=== PATIENT | female | born 1940 | race Hispanic/Latino ===

== ENCOUNTER 2020-05-31 15:53 | Inpatient (IN) | payer MEDICARE ==
[2020-05-31] MEDS ORDERED: traZODone 50 MG TAB PO PRN (16:47)
[2020-05-31] MEDS ORDERED: ACETAMINOPHEN 325 MG TAB PO PRN (16:47)
[2020-05-31] MEDS ORDERED: CARBIDOPA PO SCH (20:00)
[2020-05-31] MEDS ORDERED: LEVODOPA PO SCH (20:00)
[2020-05-31] MEDS: carBAMazepine 200 MG TAB PO SCH (21:24)
[2020-05-31] MEDS: CARBIDOPA/LEVODOPA 25-250 TAB PO SCH (21:24)
[2020-05-31] MEDS: BENZTROPINE 1 MG TAB PO SCH (21:25)
[2020-05-31] MEDS: PRAVASTATIN 40 MG TAB PO SCH (21:26)
[2020-05-31] MEDS: DONEPEZIL 10 MG TAB PO SCH (21:28)
[2020-05-31 21:56] LABS: Basophils # (Auto) 0.1 K/mm3 (0.0-0.1); Basophils % (Auto) 0.9 % (0.0-1.8); Eosinophils # (Auto) 0.2 K/mm3 (0.0-0.4); Eosinophils % (Auto) 2.3 % (0.0-4.3); Hematocrit 37.2 % (30.3-42.9); Hemoglobin 12.4 gm/dl (10.1-14.3); Lymphocytes # (Auto) 1.3 K/mm3 (1.2-5.4); Mean Corpuscular HGB Conc 33 % (30-34); Mean Corpuscular Volume 90 fl (79-97); Monocytes # (Auto) 0.7 K/mm3 (0.0-0.8); Monocytes % (Auto) 8.2 % (0.0-7.3); Platelet Count 381 K/mm3 (140-440); Red Blood Count 4.16 M/mm3 (3.65-5.03)
[2020-05-31 22:23] LABS: Alanine Aminotransferase 22 units/L (7-56); Albumin 4.3 g/dL (3.9-5); BUN/Creatinine Ratio 9; Blood Urea Nitrogen 10 mg/dL (7-17); Calcium 10.2 mg/dL (8.4-10.2); Chol/HDL Ratio 6.12 %; HDL Cholesterol 33 mg/dL (40-59); Hemolysis Index 4; LDL Cholesterol,Direct TNR mg/dL (50-130)
[2020-06-01] MEDS: LEVOTHYROXINE 25 MCG TAB PO SCH (06:08)
--- NOTE | 2020-06-01 07:28 | History and Physical Report ---
GP History & Physical - History of Present Illness Date of admission: 05/31/20 Date of Examination: 06/01/20 Reason for Admission: Other ([facility] behavior) Chief Complaint: manic behavior History of Present Illness: Per Psych Nurse: Pt admitted from ED presents with Bipolar with severe mac episode. A&OX4 with insight into situation. "I've been Bipolar for a long time," pt stated. Calm and cooperative during interview. Denies SI or HI. No AV/H observed or reported. Pt met on the w/c, but said she used to walk until one day she "decided" not to be getting up again. Denies ever had accident or injury to her legs. Reports she can still walk if someone hold her.Pt complies with medication. VS stable. BG 125 mg/dL. Her skin assessed to be intact and clean. No acute distress observed and none reported. Will continue to monitor for safety. PSYCH HPI Patient is a , retired female with past Psychiatric history of bipolar and anxiety currently admitted to [facility] on a 1014 admitted to our facility due to persistent hypoglycemic episode. Patient is alert and oriented x3, says she has been thinking about getting better so she can be able to function like a regular person. Reports she is and lives with and has had 2 children, one whom had at age 21. Today she says her mood is even, not down hill and not uphill, reports good sleep hygiene with an okay appetite. Patient had to be redirected multiple times to line of questioning during intake. Mood is unstable, talkative and admits that mentally she doesnt feel good. PAST PSYCHIATRIC HISTORY Diagnoses: Bipolar and Anxiety Suicide attempts or Self-harm behavior: none Prior psychiatric hospitalizations: Yes Substance Abuse history: none reported Previous psychiatric medications tried: Yes Outpatient treatment: yes PAST MEDICAL HISTORY: Family Psychiatric History: None reported or documented SOCIAL HISTORY Marital Status: Living Arrangements: with Employment Status: retired Access to guns/weapons: none reported Education: n/a History of Abuse: none reported Legal History: none reported REVIEW OF SYSTEMS Constitutional: Negative for weight loss ENT: Negative for stridor Respiratory: Negative for cough or hemoptysis All other systems reviewed and are negative MENTAL STATUS EXAMINATION General Appearance and Behavior: Age appropriate, good hygiene, wearing appropriate clothes, lying in bed, good eye contact, cooperative polite with questioning. Cooperation: Participating/engaged Psychomotor Behavior: unremarkable and within normal limits Mood: even Affect and affective range: euthymic Thought Process: illogical Thought Content: Loose associations Speech: Normal volume, Regular rate and rhythm Intellectual Functioning: Average Suicidal Ideation: Denies SI Homicidal Ideation: Denies HI Impulse Control: Impaired Insight and Judgment: Normal insight and judgment Memory: Impaired Attention: normal Orientation: Alert Assessment and Plan - Psychiatric problem (1) Bipolar 2 disorder Current Visit: Yes Status: Acute Treatment Plan Patient will be admitted for inpatient psychiatric evaluation, medication adjustment and close monitoring The patient's behavior, mood, sleep and appetite will be closely monitored. Patient will be enrolled in individual and group therapeutic sessions and encouraged to attend. Patient will be provided with a safe and structured environment. Patient's physical health needs will be addressed by the Hospitalist. Hospitalist Consulted Labs including CBC, CMP, Lipid profile and Hemoglobin A1C ordered Social Assessment will be completed and the [facility] [employer] Inspector will work with patient and family to ensure a suitable and safe disposition Medication adjustment will be made as clinically indicated Usual Wellness Faith/Preservation: - Start Trazodone 50 mg po QHS & 50 mg po QHS PRN between 10 PM & 2 AM for insomnia - Start Melatonin 5 mg po QHS to promote circadian rhythm - Start Valmora-3 for brain health, reduce impulsivity, and as adjunctive treatment for mood disorder, continue upon discharge given overall benefits. - Start B1 prophylaxis with 200 mg po for 5 days The patient agreed on the treatment plan, understood the risk, benefit, alternative treatment, potential consequence of no treatment, and gave informed consent. Initial Certification This is an acknowledgement statement that MARCUS ALEXANDER is a 80 year old F who requires inpatient psychiatric admission for treatment which could reasonably be expected to improve the patient's condition for mental health Estimated period of time patient will need to remain in the hospital: [4] Plan for post-hospital care: [outpt ] Legal Status: Voluntary Patient Problems: Current Active Problems Bipolar 2 disorder (Acute) Reaction to Hospitalization: Accepting Medications and Allergies Allergies Allergy/AdvReac Type Severity Reaction Status Date / Time ceftriaxone [From Rocephin] Allergy Unknown Verified 05/29/20 05:06 codeine Allergy Unknown Verified 05/29/20 05:06 morphine Allergy Unknown Verified 05/29/20 05:07 niacin Allergy Unknown Verified 05/29/20 05:06 Sulfa (Sulfonamide Allergy Unknown Verified 05/29/20 05:06 Antibiotics) Home Medications Medication Instructions Recorded Confirmed Last Taken Type Benztropine [Cogentin] 1 mg PO BID 05/29/20 05/31/20 05/28/20 History Carbidopa/Levodopa [Carbidopa-Levo 1 each PO TID 05/29/20 05/31/20 05/28/20 History 25-250 mg Odt] Citalopram [celeXA] 10 mg PO QDAY 05/29/20 05/31/20 05/28/20 History Ferrous Sulfate [Ferrous Sulfate 325 mg PO QDAY 05/29/20 05/31/20 05/28/20 History 324 MG] Levothyroxine [Synthroid] 25 mcg PO QAM 05/29/20 05/31/20 05/28/20 History Metoprolol [Lopressor TAB] 25 mg PO QDAY 05/29/20 05/31/20 05/28/20 History OLANzapine [ZyPREXA] 2.5 mg PO QDAY 05/29/20 05/31/20 05/28/20 History Pravastatin [Pravachol] 40 mg PO QHS 05/29/20 05/31/20 05/28/20 History Primidone [Mysoline] 50 mg PO QDAY 05/29/20 05/31/20 05/28/20 History carBAMazepine [TEGretol] 200 mg PO Q12HR 05/29/20 05/31/20 05/28/20 History donepeziL [Aricept] 10 mg PO QHS 05/29/20 05/31/20 05/28/20 History traZODone [Desyrel] 25 mg PO QHS PRN 05/29/20 05/31/20 05/28/20 History Acetaminophen [Acetaminophen TAB] 650 mg PO Q4H PRN tablet 05/30/20 05/31/20 Unknown Rx amLODIPine 10 mg PO DAILY 15 Days #15 tab 05/30/20 05/31/20 Unknown Rx amLODIPine 10 mg PO QDAY tablet 05/30/20 05/31/20 Unknown Rx cloNIDine [Catapres] 0.1 mg PO Q8HR PRN 05/30/20 05/31/20 Unknown History haloperidoL [Haldol] 2 mg IM Q8HR PRN 05/30/20 05/31/20 Unknown History Active Meds: Active Medications Acetaminophen (Tylenol) 650 mg PO Q4H PRN PRN Reason: Pain MILD(1-3)/Fever >100.5/REDDY Amlodipine Besylate (Amlodipine) 10 mg PO DAILY [facility] Benztropine Mesylate (Cogentin) 1 mg PO BID [facility] Last Admin: 05/31/20 21:25 Dose: 1 mg Documented by: Carbamazepine (Tegretol) 200 mg PO Q12HR [facility] Last Admin: 05/31/20 21:24 Dose: 200 mg Documented by: Carbidopa/Levodopa (Sinemet) 1 each PO TID [facility] Last Admin: 05/31/20 21:24 Dose: 1 each Documented by: Citalopram Hydrobromide (Celexa) 10 mg PO QDAY [facility] Donepezil HCl (Aricept) 10 mg PO QHS [facility] Last Admin: 05/31/20 21:28 Dose: 10 mg Documented by: Ferrous Sulfate (Feosol) 325 mg PO DAILY [facility] Levothyroxine Sodium (Synthroid) 25 mcg PO DAILY@0600 [facility] Last Admin: 06/01/20 06:08 Dose: 25 mcg Documented by: Metoprolol Tartrate (Metoprolol) 25 mg PO QDAY [facility] Olanzapine (Zyprexa) 10 mg PO QHS [facility] Last Admin: 05/31/20 21:26 Dose: 10 mg Documented by: Pravastatin Sodium (Pravachol) 40 mg PO QHS [facility] Last Admin: 05/31/20 21:26 Dose: 40 mg Documented by: Trazodone HCl (Desyrel) 25 mg PO QHS PRN PRN Reason: Sleep Results - Results Labs/Vitals: Laboratory Last Values WBC 8.1 K/mm3 (4.5-11.0) 05/31/20 21:28 RBC 4.16 M/mm3 (3.65-5.03) 05/31/20 21:28 Hgb 12.4 gm/dl (10.1-14.3) 05/31/20 21:28 Hct 37.2 % (30.3-42.9) 05/31/20 21:28 MCV 90 fl (79-97) 05/31/20 21:28 MCH 30 pg (28-32) 05/31/20 21:28 MCHC 33 % (30-34) 05/31/20 21:28 RDW 17.0 % (13.2-15.2) H 05/31/20 21:28 Plt Count 381 K/mm3 (140-440) 05/31/20 21:28 Lymph % (Auto) 16.0 % (13.4-35.0) 05/31/20 21:28 Stone % (Auto) 8.2 % (0.0-7.3) H 05/31/20 21:28 Eos % (Auto) 2.3 % (0.0-4.3) 05/31/20 21:28 Baso % (Auto) 0.9 % (0.0-1.8) 05/31/20 21:28 Lymph # 1.3 K/mm3 (1.2-5.4) 05/31/20 21:28 Stone # 0.7 K/mm3 (0.0-0.8) 05/31/20 21:28 Eos # 0.2 K/mm3 (0.0-0.4) 05/31/20 21:28 Baso # 0.1 K/mm3 (0.0-0.1) 05/31/20 21:28 Seg Neutrophils % 72.6 % (40.0-70.0) H 05/31/20 21:28 Seg Neutrophils # 5.9 K/mm3 (1.8-7.7) 05/31/20 21:28 Sodium 137 mmol/L (137-145) 05/31/20 21:28 Potassium 3.9 mmol/L (3.6-5.0) 05/31/20 21:28 Chloride 97.7 mmol/L (98-107) L 05/31/20 21:28 Carbon Dioxide 24 mmol/L (22-30) 05/31/20 21:28 Anion Gap 19 mmol/L 05/31/20 21:28 BUN 10 mg/dL (7-17) 05/31/20 21:28 Creatinine 1.1 mg/dL (0.6-1.2) 05/31/20 21:28 Estimated GFR 48 ml/min 05/31/20 21:28 BUN/Creatinine Ratio 9 % 05/31/20 21:28 Glucose 206 mg/dL (65-100) H 05/31/20 21:28 POC Glucose 125 (70-105) H 06/01/20 00:16 Calcium 10.2 mg/dL (8.4-10.2) 05/31/20 21:28 Total Bilirubin 0.20 mg/dL (0.1-1.2) 05/31/20 21:28 AST 19 units/L (5-40) 05/31/20 21:28 ALT 22 units/L (7-56) 05/31/20 21:28 Alkaline Phosphatase 122 units/L (35-129) 05/31/20 21:28 Total Protein 7.4 g/dL (6.3-8.2) 05/31/20 21:28 Albumin 4.3 g/dL (3.9-5) 05/31/20 21:28 Albumin/Globulin Ratio 1.4 % 05/31/20 21:28 Triglycerides 459 mg/dL (2-149) H 05/31/20 21:28 Cholesterol 202 mg/dL (50-199) H 05/31/20 21:28 LDL Cholesterol Direct TNR 05/31/20 21:28 HDL Cholesterol 33 mg/dL (40-59) L 05/31/20 21:28 Cholesterol/HDL Ratio 6.12 % 05/31/20 21:28 TSH 2.890 mlU/mL (0.270-4.200) 05/31/20 21:28 Last Vital Signs Temp 98.4 F 06/01/20 00:04 Pulse 81 06/01/20 00:05 Resp 18 06/01/20 00:04 BP 145/69 06/01/20 00:04 Pulse Ox 96 06/01/20 00:05 Physical Examination - Constitutional Vitals: Vital Signs Temp Pulse Resp BP Pulse Ox 98.4 F 81 18 145/69 96 06/01/20 00:04 06/01/20 00:05 06/01/20 00:04 06/01/20 00:04 06/01/20 00:05 Temperature -Last 24 Hours Temperature 98.4 F Temperature 98.4 F Mental Status Exam - Vital signs Last Vital Signs Temp 98.4 F 06/01/20 00:04 Pulse 81 06/01/20 00:05 Resp 18 06/01/20 00:04 BP 145/69 06/01/20 00:04 Pulse Ox 96 06/01/20 00:05 Assessment and Plan - Psychiatric problem (1) Bipolar 2 disorder Current Visit: Yes Status: Acute Physician Certification - Certification Statement Physician Certification Statement: This is an acknowledgement statement that MARCUS ALEXANDER is a 80 year old F who requires inpatient psychiatric admission for treatment which could reasonably be expected to improve the patient's condition for Estimated period of time patient will need to remain in the hospital: [ ] Plan for post-hospital care: [ ]
[2020-06-01] MEDS: CARBIDOPA/LEVODOPA 25-250 TAB PO SCH ×3 (08:45→21:16)
[2020-06-01] MEDS: FERROUS SULFATE 325 MG TAB PO SCH (09:25)
[2020-06-01] MEDS: CITALOPRAM 10 MG TAB PO SCH (09:26)
[2020-06-01] MEDS: BENZTROPINE 1 MG TAB PO SCH ×2 (09:26→21:17)
[2020-06-01] MEDS: carBAMazepine 200 MG TAB PO SCH ×2 (09:26→21:17)
[2020-06-01] MEDS: METOPROLOL TARTRATE 25 MG TAB PO SCH (09:27)
[2020-06-01] MEDS: amLODIPine 10 MG TAB PO SCH (09:27)
[2020-06-01] MEDS ORDERED: FERROUS SULFATE 325 MG PO SCH (10:00)
[2020-06-01] MEDS ORDERED: cloNIDine 0.1 MG TAB PO PRN (12:03)
--- NOTE | 2020-06-01 12:03 | Consultation ---
History of Present Illness - Reason for Consult Consult date: 06/01/20 Medical management Requesting physician: MELANI DAS - History of Present Illness 80 YO Female with DM, CKD, HLD, Hypothyroidism admitted to [facility] for psychiatric stabilization. Consult placed by Dr. Das for medical management. This is a 80-year-old female with DM (on metformin and glipizide), renal insufficiency, high cholesterol, and hypothyroidism presents to [facility] from [facility] for recurrent hypoglycemia per the enclosed psychiatric hospital documentation from ED documentation. She states that she is at [facility] for severe depression. She also reports having green/black bowel movements for 3 days however denies abdominal pain, nausea or vomiting. Patient is a poor historian. She denies any chest pain, nausea vomiting, cough, shortness of breath, fatigue, recent weight loss, fevers or chills. She denies any recent travel or contact with sick persons. She denies any known recent COVID-19 exposure. A digital rectal exam conducted in the ED showed no blood and is guaiac negative. Workup in emergency department showed lactic acidosis of 2.8, renal insufficiency with a creatinine of 1 and a BUN of 14, and slight hypercalcemia at 10.8. Her CXR shows no acute process. A mental health evaluation was requested as she in under a 1013 order. She was started on an infusion of D5LR at 100ml/hour, placed on hypoglycemic protocol with already Accu-Cheks and will be admitted to the hospitalist service for reoccurant hypoglycemia episodes and supportive care. At the time of my exam she is arousable to verbal and physical stimuli however she quickly falls back asleep. RN brought to bedside to conduct an Accu-Chek which revealed a blood glucose of 70. Instructed RN to follow hypoglycemia protocol and administer D50 IV push and recheck blood sugar within 15 minutes. Past History Past Medical History: diabetes, hyperlipidemia, hypothyroidism. denies: seizures, stroke Past Surgical History: No surgical history Social history: full code. denies: smoking, alcohol abuse, prescription drug abuse, IV drug use Family history: no significant family history Medications and Allergies Allergies Allergy/AdvReac Type Severity Reaction Status Date / Time ceftriaxone [From Rocephin] Allergy Unknown Verified 05/29/20 05:06 codeine Allergy Unknown Verified 05/29/20 05:06 morphine Allergy Unknown Verified 05/29/20 05:07 niacin Allergy Unknown Verified 05/29/20 05:06 Sulfa (Sulfonamide Allergy Unknown Verified 05/29/20 05:06 Antibiotics) Home Medications Medication Instructions Recorded Confirmed Last Taken Type Benztropine [Cogentin] 1 mg PO BID 05/29/20 05/31/20 05/28/20 History Carbidopa/Levodopa [Carbidopa-Levo 1 each PO TID 05/29/20 05/31/20 05/28/20 History 25-250 mg Odt] Citalopram [celeXA] 10 mg PO QDAY 05/29/20 05/31/20 05/28/20 History Ferrous Sulfate [Ferrous Sulfate 325 mg PO QDAY 05/29/20 05/31/20 05/28/20 History 324 MG] Levothyroxine [Synthroid] 25 mcg PO QAM 05/29/20 05/31/20 05/28/20 History Metoprolol [Lopressor TAB] 25 mg PO QDAY 05/29/20 05/31/20 05/28/20 History OLANzapine [ZyPREXA] 2.5 mg PO QDAY 05/29/20 05/31/20 05/28/20 History Pravastatin [Pravachol] 40 mg PO QHS 05/29/20 05/31/20 05/28/20 History Primidone [Mysoline] 50 mg PO QDAY 05/29/20 05/31/20 05/28/20 History carBAMazepine [TEGretol] 200 mg PO Q12HR 05/29/20 05/31/20 05/28/20 History donepeziL [Aricept] 10 mg PO QHS 05/29/20 05/31/20 05/28/20 History traZODone [Desyrel] 25 mg PO QHS PRN 05/29/20 05/31/20 05/28/20 History Acetaminophen [Acetaminophen TAB] 650 mg PO Q4H PRN tablet 05/30/20 05/31/20 Unknown Rx amLODIPine 10 mg PO DAILY 15 Days #15 tab 05/30/20 05/31/20 Unknown Rx amLODIPine 10 mg PO QDAY tablet 05/30/20 05/31/20 Unknown Rx cloNIDine [Catapres] 0.1 mg PO Q8HR PRN 05/30/20 05/31/20 Unknown History haloperidoL [Haldol] 2 mg IM Q8HR PRN 05/30/20 05/31/20 Unknown History Active Meds: Active Medications Acetaminophen (Tylenol) 650 mg PO Q4H PRN PRN Reason: Pain MILD(1-3)/Fever >100.5/REDDY Amlodipine Besylate (Amlodipine) 10 mg PO DAILY [facility] Last Admin: 06/01/20 09:27 Dose: 10 mg Documented by: Benztropine Mesylate (Cogentin) 1 mg PO BID [facility] Last Admin: 06/01/20 09:26 Dose: 1 mg Documented by: Carbamazepine (Tegretol) 200 mg PO Q12HR [facility] Last Admin: 06/01/20 09:26 Dose: 200 mg Documented by: Carbidopa/Levodopa (Sinemet) 1 each PO TID [facility] Last Admin: 06/01/20 08:45 Dose: 1 each Documented by: Citalopram Hydrobromide (Celexa) 10 mg PO QDAY [facility] Last Admin: 06/01/20 09:26 Dose: 10 mg Documented by: Donepezil HCl (Aricept) 10 mg PO QHS [facility] Last Admin: 05/31/20 21:28 Dose: 10 mg Documented by: Ferrous Sulfate (Feosol) 325 mg PO DAILY [facility] Last Admin: 06/01/20 09:25 Dose: 325 mg Documented by: Levothyroxine Sodium (Synthroid) 25 mcg PO DAILY@0600 [facility] Last Admin: 06/01/20 06:08 Dose: 25 mcg Documented by: Metoprolol Tartrate (Metoprolol) 25 mg PO QDAY [facility] Last Admin: 06/01/20 09:27 Dose: 25 mg Documented by: Olanzapine (Zyprexa) 10 mg PO QHS [facility] Last Admin: 05/31/20 21:26 Dose: 10 mg Documented by: Pravastatin Sodium (Pravachol) 40 mg PO QHS [facility] Last Admin: 05/31/20 21:26 Dose: 40 mg Documented by: Trazodone HCl (Desyrel) 25 mg PO QHS PRN PRN Reason: Sleep Exam - Constitutional Vitals: Temp Pulse Resp BP Pulse Ox 98.4 F 98 H 18 123/63 99 06/01/20 07:38 06/01/20 07:38 06/01/20 07:38 06/01/20 07:38 06/01/20 07:38 Results - Labs CBC & Chem 7: 05/31/20 21:28 05/31/20 21:28 Labs: Abnormal lab results 05/31/20 05/31/20 06/01/20 Range/Units 21:28 21:28 00:16 RDW 17.0 H (13.2-15.2) % [place] % (Auto) 8.2 H (0.0-7.3) % Seg Neutrophils % 72.6 H (40.0-70.0) % Chloride 97.7 L (98-107) mmol/L Glucose 206 H (65-100) mg/dL POC Glucose 125 H (70-105) Triglycerides 459 H (2-149) mg/dL Cholesterol 202 H (50-199) mg/dL HDL Cholesterol 33 L (40-59) mg/dL 06/01/20 06/01/20 Range/Units 08:10 11:29 RDW (13.2-15.2) % [place] % (Auto) (0.0-7.3) % Seg Neutrophils % (40.0-70.0) % Chloride (98-107) mmol/L Glucose (65-100) mg/dL POC Glucose 127 H 146 H (70-105) Triglycerides (2-149) mg/dL Cholesterol (50-199) mg/dL HDL Cholesterol (40-59) mg/dL
[2020-06-01] MEDS: PRAVASTATIN 40 MG TAB PO SCH (21:16)
[2020-06-01] MEDS: DONEPEZIL 10 MG TAB PO SCH (21:17)
[2020-06-02] MEDS: LEVOTHYROXINE 25 MCG TAB PO SCH (05:48)
--- NOTE | 2020-06-02 07:28 | Progress Note ---
Subjective Date of service: 06/02/20 Principal diagnosis: Bipolar 2 disorder Subjective Comment: Per Floor Nurse: Patient is calm and cooperative, she is alert oriented X3, no behaviour issue noted, pt compliant with medications, denies si/hi and avh, eat 75% -100% meals, voiced no compliant, interact well with peer, will continue to monitor. Psych Progress Mrs Benson reports feeling great today, and very positive, says she feels she can now focus on her physcial health. 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 Reason to continue inpatient psychiatric hospitalization: Patient symptoms improving, still exhibits hypomanic symptoms, reports feeling great, wanting to hire someone and pay them very good salary and sudden feeling of energy. Will continue to monitor, meds were recently adjusted. MENTAL STATUS EXAMINATION General Appearance and Behavior: Age appropriate, good hygiene, wearing appropriate clothes, lying in bed, good eye contact, cooperative polite with questioning. Cooperation: Participating/engaged Psychomotor Behavior: unremarkable and within normal limits Mood: even Affect and affective range: euthymic Thought Process: illogical Thought Content: Loose associations Speech: Normal volume, Regular rate and rhythm Intellectual Functioning: Average Suicidal Ideation: Denies SI Homicidal Ideation: Denies HI Impulse Control: Impaired Insight and Judgment: Normal insight and judgment Memory: Impaired Attention: normal Orientation: Alert Assessment and Plan - Psychiatric problem (1) Bipolar 2 disorder Current Visit: Yes Status: Acute Treatment Plan Continue current medications Patient will be admitted for inpatient psychiatric evaluation, medication adjustment and close monitoring The patient's behavior, mood, sleep and appetite will be closely monitored. Patient will be enrolled in individual and group therapeutic sessions and encouraged to attend. Patient will be provided with a safe and structured environment. Patient's physical health needs will be addressed by the Hospitalist. Hospitalist Consulted Labs including CBC, CMP, Lipid profile and Hemoglobin A1C ordered Social Assessment will be completed and the Supervisor Of Communications will work with patient and family to ensure a suitable and safe disposition Medication adjustment will be made as clinically indicated Usual Wellness Caodaism/Preservation: - Start Trazodone 50 mg po QHS & 50 mg po QHS PRN between 10 PM & 2 AM for insomnia - Start Melatonin 5 mg po QHS to promote circadian rhythm - Start [place]-3 for brain health, reduce impulsivity, and as adjunctive treatment for mood disorder, continue upon discharge given overall benefits. - Start B1 prophylaxis with 200 mg po for 5 days The patient agreed on the treatment plan, understood the risk, benefit, alternative treatment, potential consequence of no treatment, and gave informed consent. Initial Certification This is an acknowledgement statement that MARCUS ALEXANDER is a 80 year old F who requires inpatient psychiatric admission for treatment which could reasonably be expected to improve the patient's condition for mental health Estimated period of time patient will need to remain in the hospital: [3] Plan for post-hospital care: [outpt ] Assessment and Plan - Patient Problems (1) Bipolar 2 disorder Current Visit: Yes Status: Acute Medications and Allergies Allergies Allergy/AdvReac Type Severity Reaction Status Date / Time ceftriaxone [From Rocephin] Allergy Unknown Verified 05/29/20 05:06 codeine Allergy Unknown Verified 05/29/20 05:06 morphine Allergy Unknown Verified 05/29/20 05:07 niacin Allergy Unknown Verified 05/29/20 05:06 Sulfa (Sulfonamide Allergy Unknown Verified 05/29/20 05:06 Antibiotics) Home Medications Medication Instructions Recorded Confirmed Last Taken Type Benztropine [Cogentin] 1 mg PO BID 05/29/20 05/31/20 05/28/20 History Carbidopa/Levodopa [Carbidopa-Levo 1 each PO TID 05/29/20 05/31/20 05/28/20 History 25-250 mg Odt] Citalopram [celeXA] 10 mg PO QDAY 05/29/20 05/31/20 05/28/20 History Ferrous Sulfate [Ferrous Sulfate 325 mg PO QDAY 05/29/20 05/31/20 05/28/20 History 324 MG] Levothyroxine [Synthroid] 25 mcg PO QAM 05/29/20 05/31/20 05/28/20 History Metoprolol [Lopressor TAB] 25 mg PO QDAY 05/29/20 05/31/20 05/28/20 History OLANzapine [ZyPREXA] 2.5 mg PO QDAY 05/29/20 05/31/20 05/28/20 History Pravastatin [Pravachol] 40 mg PO QHS 05/29/20 05/31/20 05/28/20 History Primidone [Mysoline] 50 mg PO QDAY 05/29/20 05/31/20 05/28/20 History carBAMazepine [TEGretol] 200 mg PO Q12HR 05/29/20 05/31/20 05/28/20 History donepeziL [Aricept] 10 mg PO QHS 05/29/20 05/31/20 05/28/20 History traZODone [Desyrel] 25 mg PO QHS PRN 05/29/20 05/31/20 05/28/20 History Acetaminophen [Acetaminophen TAB] 650 mg PO Q4H PRN tablet 05/30/20 05/31/20 Unknown Rx amLODIPine 10 mg PO DAILY 15 Days #15 tab 05/30/20 05/31/20 Unknown Rx amLODIPine 10 mg PO QDAY tablet 05/30/20 05/31/20 Unknown Rx cloNIDine [Catapres] 0.1 mg PO Q8HR PRN 05/30/20 05/31/20 Unknown History haloperidoL [Haldol] 2 mg IM Q8HR PRN 05/30/20 05/31/20 Unknown History Active Meds: Active Medications Acetaminophen (Tylenol) 650 mg PO Q4H PRN PRN Reason: Pain MILD(1-3)/Fever >100.5/REDDY Amlodipine Besylate (Amlodipine) 10 mg PO DAILY [facility] Last Admin: 06/01/20 09:27 Dose: 10 mg Documented by: Benztropine Mesylate (Cogentin) 1 mg PO BID [facility] Last Admin: 06/01/20 21:17 Dose: 1 mg Documented by: Carbamazepine (Tegretol) 200 mg PO Q12HR [facility] Last Admin: 06/01/20 21:17 Dose: 200 mg Documented by: Carbidopa/Levodopa (Sinemet) 1 each PO TID [facility] Last Admin: 06/01/20 21:16 Dose: 1 each Documented by: Citalopram Hydrobromide (Celexa) 10 mg PO QDAY [facility] Last Admin: 06/01/20 09:26 Dose: 10 mg Documented by: Clonidine HCl (Catapres) 0.1 mg PO Q8HR PRN PRN Reason: Increased Blood Pressure Donepezil HCl (Aricept) 10 mg PO QHS [facility] Last Admin: 06/01/20 21:17 Dose: 10 mg Documented by: Ferrous Sulfate (Feosol) 325 mg PO DAILY [facility] Last Admin: 06/01/20 09:25 Dose: 325 mg Documented by: Levothyroxine Sodium (Synthroid) 25 mcg PO DAILY@0600 [facility] Last Admin: 06/02/20 05:48 Dose: 25 mcg Documented by: Metoprolol Tartrate (Metoprolol) 25 mg PO QDAY [facility] Last Admin: 06/01/20 09:27 Dose: 25 mg Documented by: Olanzapine (Zyprexa) 10 mg PO QHS [facility] Last Admin: 06/01/20 21:16 Dose: 10 mg Documented by: Pravastatin Sodium (Pravachol) 40 mg PO QHS [facility] Last Admin: 06/01/20 21:16 Dose: 40 mg Documented by: Trazodone HCl (Desyrel) 25 mg PO QHS PRN PRN Reason: Sleep Results - Results Labs/Vitals: Laboratory Last Values WBC 8.1 K/mm3 (4.5-11.0) 05/31/20 21:28 RBC 4.16 M/mm3 (3.65-5.03) 05/31/20 21:28 Hgb 12.4 gm/dl (10.1-14.3) 05/31/20 21:28 Hct 37.2 % (30.3-42.9) 05/31/20 21:28 MCV 90 fl (79-97) 05/31/20 21:28 MCH 30 pg (28-32) 05/31/20 21:28 MCHC 33 % (30-34) 05/31/20 21:28 RDW 17.0 % (13.2-15.2) H 05/31/20 21:28 Plt Count 381 K/mm3 (140-440) 05/31/20 21:28 Lymph % (Auto) 16.0 % (13.4-35.0) 05/31/20 21:28 [place] % (Auto) 8.2 % (0.0-7.3) H 05/31/20 21:28 Eos % (Auto) 2.3 % (0.0-4.3) 05/31/20 21:28 Baso % (Auto) 0.9 % (0.0-1.8) 05/31/20 21:28 Lymph # 1.3 K/mm3 (1.2-5.4) 05/31/20 21:28 [place] # 0.7 K/mm3 (0.0-0.8) 05/31/20 21:28 Eos # 0.2 K/mm3 (0.0-0.4) 05/31/20 21:28 Baso # 0.1 K/mm3 (0.0-0.1) 05/31/20 21:28 Seg Neutrophils % 72.6 % (40.0-70.0) H 05/31/20 21:28 Seg Neutrophils # 5.9 K/mm3 (1.8-7.7) 05/31/20 21:28 Sodium 137 mmol/L (137-145) 05/31/20 21:28 Potassium 3.9 mmol/L (3.6-5.0) 05/31/20 21:28 Chloride 97.7 mmol/L (98-107) L 05/31/20 21:28 Carbon Dioxide 24 mmol/L (22-30) 05/31/20 21:28 Anion Gap 19 mmol/L 05/31/20 21:28 BUN 10 mg/dL (7-17) 05/31/20 21:28 Creatinine 1.1 mg/dL (0.6-1.2) 05/31/20 21:28 Estimated GFR 48 ml/min 05/31/20 21:28 BUN/Creatinine Ratio 9 % 05/31/20 21:28 Glucose 206 mg/dL (65-100) H 05/31/20 21:28 POC Glucose 166 (70-105) H 06/01/20 19:55 Calcium 10.2 mg/dL (8.4-10.2) 05/31/20 21:28 Total Bilirubin 0.20 mg/dL (0.1-1.2) 05/31/20 21:28 AST 19 units/L (5-40) 05/31/20 21:28 ALT 22 units/L (7-56) 05/31/20 21:28 Alkaline Phosphatase 122 units/L (35-129) 05/31/20 21:28 Total Protein 7.4 g/dL (6.3-8.2) 05/31/20 21:28 Albumin 4.3 g/dL (3.9-5) 05/31/20 21:28 Albumin/Globulin Ratio 1.4 % 05/31/20 21:28 Triglycerides 459 mg/dL (2-149) H 05/31/20 21:28 Cholesterol 202 mg/dL (50-199) H 05/31/20 21:28 LDL Cholesterol Direct TNR 05/31/20 21:28 HDL Cholesterol 33 mg/dL (40-59) L 05/31/20 21:28 Cholesterol/HDL Ratio 6.12 % 05/31/20 21:28 TSH 2.890 mlU/mL (0.270-4.200) 05/31/20 21:28 Last Vital Signs Temp 98.6 F 06/01/20 22:00 Pulse 74 06/01/20 19:01 Resp 18 06/01/20 22:00 BP 140/63 06/01/20 22:00 Pulse Ox 98 06/01/20 19:01
[2020-06-02] MEDS: amLODIPine 10 MG TAB PO SCH (09:44)
[2020-06-02] MEDS: carBAMazepine 200 MG TAB PO SCH ×2 (09:44→21:43)
[2020-06-02] MEDS: CITALOPRAM 10 MG TAB PO SCH (09:44)
[2020-06-02] MEDS: FERROUS SULFATE 325 MG TAB PO SCH (09:44)
[2020-06-02] MEDS: CARBIDOPA/LEVODOPA 25-250 TAB PO SCH ×3 (09:45→20:32)
[2020-06-02] MEDS: METOPROLOL TARTRATE 25 MG TAB PO SCH (09:45)
[2020-06-02] MEDS: BENZTROPINE 1 MG TAB PO SCH ×2 (09:47→21:42)
[2020-06-02] MEDS ORDERED: amLODIPine 10 MG TAB PO SCH (10:00)
[2020-06-02] MEDS: PRAVASTATIN 40 MG TAB PO SCH (21:42)
[2020-06-02] MEDS: DONEPEZIL 10 MG TAB PO SCH (21:42)
[2020-06-03] MEDS: LEVOTHYROXINE 25 MCG TAB PO SCH (05:37)
--- NOTE | 2020-06-03 07:27 | Progress Note ---
Subjective Date of service: 06/03/20 Principal diagnosis: Bipolar 2 disorder Subjective Comment: Per Floor Nurse: pt spent her evening in activity room interacting with selected peers, able to make needs known, alert and oriented x3, calm and cooperative, forgetful, heard of hearing as reported by pt, mood is stable, bright affect, medication compliant, requested for sleeping medication, trazodone 25mg po given prn for sleep, no pain reported, had only juice for bedtime snack, no distress noted, will continue to monitor for safety Psych Progress Patient seen in breakfast, called out my name today. Reports doing pretty well since started back on her meds, says she is sleeping good, appetites great and has been medication compliant. Pt asked when she can go home, inform pt I will discuss with about progress and plan for discharge. Reason to continue inpatient psychiatric hospitalization: Patient improved, has been medication compliant and has had no symptoms. Mood has been stable. Will plan for safety discharge with team for tomorrow. MENTAL STATUS EXAMINATION General Appearance and Behavior: Age appropriate, good hygiene, wearing appropriate clothes, lying in bed, good eye contact, cooperative polite with questioning. Cooperation: Participating/engaged Psychomotor Behavior: unremarkable and within normal limits Mood: good Affect and affective range: euthymic Thought Process: logical Thought Content: withing reality Speech: Normal volume, Regular rate and rhythm Intellectual Functioning: Average Suicidal Ideation: Denies SI Homicidal Ideation: Denies HI Impulse Control: Impaired Insight and Judgment: Normal insight and judgment Memory: Impaired Attention: normal Orientation: Alert Assessment and Plan - Psychiatric problem (1) Bipolar 2 disorder Current Visit: Yes Status: Acute Treatment Plan Continue current medications Patient will be admitted for inpatient psychiatric evaluation, medication adjustment and close monitoring The patient's behavior, mood, sleep and appetite will be closely monitored. Patient will be enrolled in individual and group therapeutic sessions and encouraged to attend. Patient will be provided with a safe and structured environment. Patient's physical health needs will be addressed by the Hospitalist. Hospitalist Consulted Labs including CBC, CMP, Lipid profile and Hemoglobin A1C ordered Social Assessment will be completed and the Pediatric Dentist will work with patient and family to ensure a suitable and safe disposition Medication adjustment will be made as clinically indicated Usual Wellness Pentecostal/Preservation: - Start Trazodone 50 mg po QHS & 50 mg po QHS PRN between 10 PM & 2 AM for insomnia - Start Melatonin 5 mg po QHS to promote circadian rhythm - Start [place]-3 for brain health, reduce impulsivity, and as adjunctive treatment for mood disorder, continue upon discharge given overall benefits. - Start B1 prophylaxis with 200 mg po for 5 days The patient agreed on the treatment plan, understood the risk, benefit, alternative treatment, potential consequence of no treatment, and gave informed consent. Initial Certification This is an acknowledgement statement that MARCUS ALEXANDER is a 80 year old F who requires inpatient psychiatric admission for treatment which could reasonably be expected to improve the patient's condition for mental health Estimated period of time patient will need to remain in the hospital: [2] Plan for post-hospital care: [outpt ] Assessment and Plan - Patient Problems (1) Bipolar 2 disorder Current Visit: Yes Status: Acute Medications and Allergies Allergies Allergy/AdvReac Type Severity Reaction Status Date / Time ceftriaxone [From Rocephin] Allergy Unknown Verified 05/29/20 05:06 codeine Allergy Unknown Verified 05/29/20 05:06 morphine Allergy Unknown Verified 05/29/20 05:07 niacin Allergy Unknown Verified 05/29/20 05:06 Sulfa (Sulfonamide Allergy Unknown Verified 05/29/20 05:06 Antibiotics) Home Medications Medication Instructions Recorded Confirmed Last Taken Type Benztropine [Cogentin] 1 mg PO BID 05/29/20 05/31/20 05/28/20 History Carbidopa/Levodopa [Carbidopa-Levo 1 each PO TID 05/29/20 05/31/20 05/28/20 History 25-250 mg Odt] Citalopram [celeXA] 10 mg PO QDAY 05/29/20 05/31/20 05/28/20 History Ferrous Sulfate [Ferrous Sulfate 325 mg PO QDAY 05/29/20 05/31/20 05/28/20 History 324 MG] Levothyroxine [Synthroid] 25 mcg PO QAM 05/29/20 05/31/20 05/28/20 History Metoprolol [Lopressor TAB] 25 mg PO QDAY 05/29/20 05/31/20 05/28/20 History OLANzapine [ZyPREXA] 2.5 mg PO QDAY 05/29/20 05/31/20 05/28/20 History Pravastatin [Pravachol] 40 mg PO QHS 05/29/20 05/31/20 05/28/20 History Primidone [Mysoline] 50 mg PO QDAY 05/29/20 05/31/20 05/28/20 History carBAMazepine [TEGretol] 200 mg PO Q12HR 05/29/20 05/31/20 05/28/20 History donepeziL [Aricept] 10 mg PO QHS 05/29/20 05/31/20 05/28/20 History traZODone [Desyrel] 25 mg PO QHS PRN 05/29/20 05/31/20 05/28/20 History Acetaminophen [Acetaminophen TAB] 650 mg PO Q4H PRN tablet 05/30/20 05/31/20 Unknown Rx amLODIPine 10 mg PO DAILY 15 Days #15 tab 05/30/20 05/31/20 Unknown Rx amLODIPine 10 mg PO QDAY tablet 05/30/20 05/31/20 Unknown Rx cloNIDine [Catapres] 0.1 mg PO Q8HR PRN 05/30/20 05/31/20 Unknown History haloperidoL [Haldol] 2 mg IM Q8HR PRN 05/30/20 05/31/20 Unknown History Active Meds: Active Medications Acetaminophen (Tylenol) 650 mg PO Q4H PRN PRN Reason: Pain MILD(1-3)/Fever >100.5/REDDY Amlodipine Besylate (Amlodipine) 10 mg PO DAILY [facility] Last Admin: 06/02/20 09:44 Dose: 10 mg Documented by: Benztropine Mesylate (Cogentin) 1 mg PO BID [facility] Last Admin: 06/02/20 21:42 Dose: 1 mg Documented by: Carbamazepine (Tegretol) 200 mg PO Q12HR [facility] Last Admin: 06/02/20 21:43 Dose: 200 mg Documented by: Carbidopa/Levodopa (Sinemet) 1 each PO TID [facility] Last Admin: 06/02/20 20:32 Dose: 1 each Documented by: Citalopram Hydrobromide (Celexa) 10 mg PO QDAY [facility] Last Admin: 06/02/20 09:44 Dose: 10 mg Documented by: Clonidine HCl (Catapres) 0.1 mg PO Q8HR PRN PRN Reason: Increased Blood Pressure Donepezil HCl (Aricept) 10 mg PO QHS [facility] Last Admin: 06/02/20 21:42 Dose: 10 mg Documented by: Ferrous Sulfate (Feosol) 325 mg PO DAILY [facility] Last Admin: 06/02/20 09:44 Dose: 325 mg Documented by: Levothyroxine Sodium (Synthroid) 25 mcg PO DAILY@0600 [facility] Last Admin: 06/03/20 05:37 Dose: 25 mcg Documented by: Metoprolol Tartrate (Metoprolol) 25 mg PO QDAY [facility] Last Admin: 06/02/20 09:45 Dose: 25 mg Documented by: Olanzapine (Zyprexa) 10 mg PO QHS [facility] Last Admin: 06/02/20 21:43 Dose: 10 mg Documented by: Pravastatin Sodium (Pravachol) 40 mg PO QHS [facility] Last Admin: 06/02/20 21:42 Dose: 40 mg Documented by: Trazodone HCl (Desyrel) 25 mg PO QHS PRN PRN Reason: Sleep Last Admin: 06/02/20 21:43 Dose: 25 mg Documented by: Results - Results Labs/Vitals: Laboratory Last Values WBC 8.1 K/mm3 (4.5-11.0) 05/31/20 21:28 RBC 4.16 M/mm3 (3.65-5.03) 05/31/20 21:28 Hgb 12.4 gm/dl (10.1-14.3) 05/31/20 21:28 Hct 37.2 % (30.3-42.9) 05/31/20 21:28 MCV 90 fl (79-97) 05/31/20 21:28 MCH 30 pg (28-32) 05/31/20 21:28 MCHC 33 % (30-34) 05/31/20 21:28 RDW 17.0 % (13.2-15.2) H 05/31/20 21:28 Plt Count 381 K/mm3 (140-440) 05/31/20 21:28 Lymph % (Auto) 16.0 % (13.4-35.0) 05/31/20 21:28 [place] % (Auto) 8.2 % (0.0-7.3) H 05/31/20 21:28 Eos % (Auto) 2.3 % (0.0-4.3) 05/31/20 21:28 Baso % (Auto) 0.9 % (0.0-1.8) 05/31/20 21:28 Lymph # 1.3 K/mm3 (1.2-5.4) 05/31/20 21:28 [place] # 0.7 K/mm3 (0.0-0.8) 05/31/20 21:28 Eos # 0.2 K/mm3 (0.0-0.4) 05/31/20 21:28 Baso # 0.1 K/mm3 (0.0-0.1) 05/31/20 21:28 Seg Neutrophils % 72.6 % (40.0-70.0) H 05/31/20 21:28 Seg Neutrophils # 5.9 K/mm3 (1.8-7.7) 05/31/20 21:28 Sodium 137 mmol/L (137-145) 05/31/20 21:28 Potassium 3.9 mmol/L (3.6-5.0) 05/31/20 21:28 Chloride 97.7 mmol/L (98-107) L 05/31/20 21:28 Carbon Dioxide 24 mmol/L (22-30) 05/31/20 21:28 Anion Gap 19 mmol/L 05/31/20 21:28 BUN 10 mg/dL (7-17) 05/31/20 21:28 Creatinine 1.1 mg/dL (0.6-1.2) 05/31/20 21:28 Estimated GFR 48 ml/min 05/31/20 21:28 BUN/Creatinine Ratio 9 % 05/31/20 21:28 Glucose 206 mg/dL (65-100) H 05/31/20 21:28 POC Glucose 130 (70-105) H 06/03/20 06:26 Calcium 10.2 mg/dL (8.4-10.2) 05/31/20 21:28 Total Bilirubin 0.20 mg/dL (0.1-1.2) 05/31/20 21:28 AST 19 units/L (5-40) 05/31/20 21:28 ALT 22 units/L (7-56) 05/31/20 21:28 Alkaline Phosphatase 122 units/L (35-129) 05/31/20 21:28 Total Protein 7.4 g/dL (6.3-8.2) 05/31/20 21:28 Albumin 4.3 g/dL (3.9-5) 05/31/20 21:28 Albumin/Globulin Ratio 1.4 % 05/31/20 21:28 Triglycerides 459 mg/dL (2-149) H 05/31/20 21:28 Cholesterol 202 mg/dL (50-199) H 05/31/20 21:28 LDL Cholesterol Direct TNR 05/31/20 21:28 HDL Cholesterol 33 mg/dL (40-59) L 05/31/20 21: Cholesterol/HDL Ratio 6.12 % 05/31/20 21: TSH 2.890 mlU/mL (0.270-4.200) 05/31/20 21:28 Last Vital Signs Temp 97.5 F L 06/02/20 22:00 Pulse 72 06/02/20 22:00 Resp 18 06/02/20 22:00 BP 137/60 06/02/20 22:00 Pulse Ox 98 06/02/20 22:00
[2020-06-03] MEDS: FERROUS SULFATE 325 MG TAB PO SCH (10:27)
[2020-06-03] MEDS: amLODIPine 10 MG TAB PO SCH (10:28)
[2020-06-03] MEDS: CITALOPRAM 10 MG TAB PO SCH (10:28)
[2020-06-03] MEDS: BENZTROPINE 1 MG TAB PO SCH ×2 (10:28→21:24)
[2020-06-03] MEDS: CARBIDOPA/LEVODOPA 25-250 TAB PO SCH ×3 (10:28→20:34)
[2020-06-03] MEDS: METOPROLOL TARTRATE 25 MG TAB PO SCH (10:29)
[2020-06-03] MEDS: carBAMazepine 200 MG TAB PO SCH ×2 (10:30→21:24)
[2020-06-03] MEDS: PRAVASTATIN 40 MG TAB PO SCH (21:24)
[2020-06-03] MEDS: DONEPEZIL 10 MG TAB PO SCH (21:24)
[2020-06-04] MEDS: LEVOTHYROXINE 25 MCG TAB PO SCH (06:53)
--- NOTE | 2020-06-04 07:28 | Progress Note ---
Subjective Date of service: 06/04/20 Principal diagnosis: Bipolar 2 disorder Subjective Comment: Per Floor Nurse: Pt received in the acidity room sitting quietly. Assisted to the bathroom as requested. Denies pain, SI or HI. No acute distress observed and none reported. Will continue to monitor. Psych Progress Pt seen today, reports doing okay, happy she will get to leave today, no medication side effects complaints but diarrhea noted by nurses. Spoke with patients , says he was very happy with her improvement which he could tell when he spoke to her on phone yesterday. Reason to continue inpatient psychiatric hospitalization: Discharge planned for today MENTAL STATUS EXAMINATION General Appearance and Behavior: Age appropriate, good hygiene, wearing appropriate clothes, lying in bed, good eye contact, cooperative polite with questioning. Cooperation: Participating/engaged Psychomotor Behavior: unremarkable and within normal limits Mood: good Affect and affective range: euthymic Thought Process: logical Thought Content: withing reality Speech: Normal volume, Regular rate and rhythm Intellectual Functioning: Average Suicidal Ideation: Denies SI Homicidal Ideation: Denies HI Impulse Control: Impaired Insight and Judgment: Normal insight and judgment Memory: Impaired Attention: normal Orientation: Alert Assessment and Plan - Psychiatric problem (1) Bipolar 2 disorder Current Visit: Yes Status: Acute Treatment Plan Continue current medications Patient will be admitted for inpatient psychiatric evaluation, medication adjustment and close monitoring The patient's behavior, mood, sleep and appetite will be closely monitored. Patient will be enrolled in individual and group therapeutic sessions and encouraged to attend. Patient will be provided with a safe and structured environment. Patient's physical health needs will be addressed by the Hospitalist. Hospitalist Consulted Labs including CBC, CMP, Lipid profile and Hemoglobin A1C ordered Social Assessment will be completed and the Publications Inspector will work with patient and family to ensure a suitable and safe disposition Medication adjustment will be made as clinically indicated Usual Wellness Zoroastrianism/Preservation: - Start Trazodone 50 mg po QHS & 50 mg po QHS PRN between 10 PM & 2 AM for insomnia - Start Melatonin 5 mg po QHS to promote circadian rhythm - Start [place]-3 for brain health, reduce impulsivity, and as adjunctive treatment for mood disorder, continue upon discharge given overall benefits. - Start B1 prophylaxis with 200 mg po for 5 days The patient agreed on the treatment plan, understood the risk, benefit, alternative treatment, potential consequence of no treatment, and gave informed consent. Initial Certification This is an acknowledgement statement that MARCUS ALEXANDER is a 80 year old F who requires inpatient psychiatric admission for treatment which could reasonably be expected to improve the patient's condition for mental health Estimated period of time patient will need to remain in the hospital: [1] Plan for post-hospital care: [outpt ] Assessment and Plan - Patient Problems (1) Bipolar 2 disorder Current Visit: Yes Status: Acute Medications and Allergies Allergies Allergy/AdvReac Type Severity Reaction Status Date / Time ceftriaxone [From Rocephin] Allergy Unknown Verified 05/29/20 05:06 codeine Allergy Unknown Verified 05/29/20 05:06 morphine Allergy Unknown Verified 05/29/20 05:07 niacin Allergy Unknown Verified 05/29/20 05:06 Sulfa (Sulfonamide Allergy Unknown Verified 05/29/20 05:06 Antibiotics) Home Medications Medication Instructions Recorded Confirmed Last Taken Type Benztropine [Cogentin] 1 mg PO BID 05/29/20 05/31/20 05/28/20 History Carbidopa/Levodopa [Carbidopa-Levo 1 each PO TID 05/29/20 05/31/20 05/28/20 History 25-250 mg Odt] Ferrous Sulfate [Ferrous Sulfate 325 mg PO QDAY 05/29/20 05/31/20 05/28/20 History 324 MG] Levothyroxine [Synthroid] 25 mcg PO QAM 05/29/20 05/31/20 05/28/20 History Metoprolol [Lopressor TAB] 25 mg PO QDAY 05/29/20 05/31/20 05/28/20 History Pravastatin [Pravachol] 40 mg PO QHS 05/29/20 05/31/20 05/28/20 History carBAMazepine [TEGretol] 200 mg PO Q12HR 05/29/20 05/31/20 05/28/20 History donepeziL [Aricept] 10 mg PO QHS 05/29/20 05/31/20 05/28/20 History traZODone [Desyrel] 25 mg PO QHS PRN 05/29/20 05/31/20 05/28/20 History amLODIPine 10 mg PO DAILY 15 Days #15 tab 05/30/20 05/31/20 Unknown Rx amLODIPine 10 mg PO QDAY tablet 05/30/20 05/31/20 Unknown Rx cloNIDine [Catapres] 0.1 mg PO Q8HR PRN 05/30/20 05/31/20 Unknown History haloperidoL [Haldol] 2 mg IM Q8HR PRN 05/30/20 05/31/20 Unknown History Carbidopa/Levodopa 25-250 [Sinemet 1 each PO TID tablet 06/04/20 Unknown Rx 25/250] Citalopram [celeXA] 10 mg PO QDAY #30 06/04/20 Unknown Rx OLANzapine [ZyPREXA] 10 mg PO QHS #30 tablet 06/04/20 Unknown Rx Active Meds: Active Medications Acetaminophen (Tylenol) 650 mg PO Q4H PRN PRN Reason: Pain MILD(1-3)/Fever >100.5/REDDY Amlodipine Besylate (Amlodipine) 10 mg PO DAILY [facility] Last Admin: 06/03/20 10:28 Dose: 10 mg Documented by: Benztropine Mesylate (Cogentin) 1 mg PO BID [facility] Last Admin: 06/03/20 21:24 Dose: 1 mg Documented by: Carbamazepine (Tegretol) 200 mg PO Q12HR [facility] Last Admin: 06/03/20 21:24 Dose: 200 mg Documented by: Carbidopa/Levodopa (Sinemet) 1 each PO TID [facility] Last Admin: 06/03/20 20:34 Dose: 1 each Documented by: Citalopram Hydrobromide (Celexa) 10 mg PO QDAY [facility] Last Admin: 06/03/20 10:28 Dose: 10 mg Documented by: Clonidine HCl (Catapres) 0.1 mg PO Q8HR PRN PRN Reason: Increased Blood Pressure Donepezil HCl (Aricept) 10 mg PO QHS [facility] Last Admin: 06/03/20 21:24 Dose: 10 mg Documented by: Ferrous Sulfate (Feosol) 325 mg PO DAILY [facility] Last Admin: 06/03/20 10:27 Dose: 325 mg Documented by: Levothyroxine Sodium (Synthroid) 25 mcg PO DAILY@0600 [facility] Last Admin: 06/04/20 06:53 Dose: 25 mcg Documented by: Metoprolol Tartrate (Metoprolol) 25 mg PO QDAY [facility] Last Admin: 06/03/20 10:29 Dose: 25 mg Documented by: Olanzapine (Zyprexa) 10 mg PO QHS [facility] Last Admin: 06/03/20 21:24 Dose: 10 mg Documented by: Pravastatin Sodium (Pravachol) 40 mg PO QHS [facility] Last Admin: 06/03/20 21:24 Dose: 40 mg Documented by: Trazodone HCl (Desyrel) 25 mg PO QHS PRN PRN Reason: Sleep Last Admin: 06/02/20 21:43 Dose: 25 mg Documented by: Results - Results Labs/Vitals: Laboratory Last Values WBC 8.1 K/mm3 (4.5-11.0) 05/31/20 21:28 RBC 4.16 M/mm3 (3.65-5.03) 05/31/20 21:28 Hgb 12.4 gm/dl (10.1-14.3) 05/31/20 21:28 Hct 37.2 % (30.3-42.9) 05/31/20 21:28 MCV 90 fl (79-97) 05/31/20 21:28 MCH 30 pg (28-32) 05/31/20 21:28 MCHC 33 % (30-34) 05/31/20 21:28 RDW 17.0 % (13.2-15.2) H 05/31/20 21:28 Plt Count 381 K/mm3 (140-440) 05/31/20 21:28 Lymph % (Auto) 16.0 % (13.4-35.0) 05/31/20 21:28 [place] % (Auto) 8.2 % (0.0-7.3) H 05/31/20 21:28 Eos % (Auto) 2.3 % (0.0-4.3) 05/31/20 21:28 Baso % (Auto) 0.9 % (0.0-1.8) 05/31/20 21:28 Lymph # 1.3 K/mm3 (1.2-5.4) 05/31/20 21:28 [place] # 0.7 K/mm3 (0.0-0.8) 05/31/20 21:28 Eos # 0.2 K/mm3 (0.0-0.4) 05/31/20 21:28 Baso # 0.1 K/mm3 (0.0-0.1) 05/31/20 21:28 Seg Neutrophils % 72.6 % (40.0-70.0) H 05/31/20 21:28 Seg Neutrophils # 5.9 K/mm3 (1.8-7.7) 05/31/20 21:28 Sodium 137 mmol/L (137-145) 05/31/20 21:28 Potassium 3.9 mmol/L (3.6-5.0) 05/31/20 21:28 Chloride 97.7 mmol/L (98-107) L 05/31/20 21:28 Carbon Dioxide 24 mmol/L (22-30) 05/31/20 21:28 Anion Gap 19 mmol/L 05/31/20 21:28 BUN 10 mg/dL (7-17) 05/31/20 21:28 Creatinine 1.1 mg/dL (0.6-1.2) 05/31/20 21:28 Estimated GFR 48 ml/min 05/31/20 21:28 BUN/Creatinine Ratio 9 % 05/31/20 21:28 Glucose 206 mg/dL (65-100) H 05/31/20 21:28 POC Glucose 130 (70-105) H 06/03/20 06:26 Calcium 10.2 mg/dL (8.4-10.2) 05/31/20 21:28 Total Bilirubin 0.20 mg/dL (0.1-1.2) 05/31/20 21:28 AST 19 units/L (5-40) 05/31/20 21:28 ALT 22 units/L (7-56) 05/31/20 21:28 Alkaline Phosphatase 122 units/L (35-129) 05/31/20 21:28 Total Protein 7.4 g/dL (6.3-8.2) 05/31/20 21:28 Albumin 4.3 g/dL (3.9-5) 05/31/20 21:28 Albumin/Globulin Ratio 1.4 % 05/31/20 21:28 Triglycerides 459 mg/dL (2-149) H 05/31/20 21:28 Cholesterol 202 mg/dL (50-199) H 05/31/20 21:28 LDL Cholesterol Direct TNR 05/31/20 21:28 HDL Cholesterol 33 mg/dL (40-59) L 05/31/20 21:28 Cholesterol/HDL Ratio 6.12 % 05/31/20 21:28 TSH 2.890 mlU/mL (0.270-4.200) 05/31/20 21:28 Last Vital Signs Temp 97.8 F 06/03/20 20:04 Pulse 81 06/03/20 20:04 Resp 18 06/03/20 20:04 BP 149/76 06/03/20 20:04 Pulse Ox 97 06/03/20 20:04
[2020-06-04 13:46] VITALS: BP 139/67
[2020-06-04] MEDS ORDERED: LOPERAMIDE 2 MG CAP PO PRN (14:39)
--- NOTE | 2020-06-04 14:41 | Discharge Summary ---
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 The patients mood, cognition, behavior, motivation, compliance to treatment and appreciation on family/social support are improved and stabilized. At the time of discharge, the patient had no suicidal ideas, no homicidal ideas, no aggressive thoughts, no endangering behavior and no debilitating adverse effects. The patient agreed on the treatment plan, understood the risk, benefit, alternative treatment, potential consequence of no treatment, and gave informed consent. Disposition: DC-01 TO HOME OR SELFCARE Allergies/Adverse Reactions: Allergies ceftriaxone [From Rocephin] Allergy (Verified 05/29/20 05:06) Unknown codeine Allergy (Verified 05/29/20 05:06) Unknown morphine Allergy (Verified 05/29/20 05:07) Unknown niacin Allergy (Verified 05/29/20 05:06) Unknown Sulfa (Sulfonamide Antibiotics) Allergy (Verified 05/29/20 05:06) Unknown Vital Signs: Last Vital Signs Temp 98.7 F 06/04/20 10:40 Pulse 85 06/04/20 10:40 Resp 16 06/04/20 10:40 BP 139/67 06/04/20 10:40 Pulse Ox 95 06/04/20 10:40 Last Lab: Laboratory Last Values WBC 8.1 K/mm3 (4.5-11.0) 05/31/20 21:28 RBC 4.16 M/mm3 (3.65-5.03) 05/31/20 21:28 Hgb 12.4 gm/dl (10.1-14.3) 05/31/20 21:28 Hct 37.2 % (30.3-42.9) 05/31/20 21:28 MCV 90 fl (79-97) 05/31/20 21:28 MCH 30 pg (28-32) 05/31/20 21:28 MCHC 33 % (30-34) 05/31/20 21:28 RDW 17.0 % (13.2-15.2) H 05/31/20 21:28 Plt Count 381 K/mm3 (140-440) 05/31/20 21:28 Lymph % (Auto) 16.0 % (13.4-35.0) 05/31/20 21:28 [place] % (Auto) 8.2 % (0.0-7.3) H 05/31/20 21:28 Eos % (Auto) 2.3 % (0.0-4.3) 05/31/20 21:28 Baso % (Auto) 0.9 % (0.0-1.8) 05/31/20 21:28 Lymph # 1.3 K/mm3 (1.2-5.4) 05/31/20 21:28 [place] # 0.7 K/mm3 (0.0-0.8) 05/31/20 21:28 Eos # 0.2 K/mm3 (0.0-0.4) 05/31/20 21:28 Baso # 0.1 K/mm3 (0.0-0.1) 05/31/20 21:28 Seg Neutrophils % 72.6 % (40.0-70.0) H 05/31/20 21:28 Seg Neutrophils # 5.9 K/mm3 (1.8-7.7) 05/31/20 21:28 Sodium 137 mmol/L (137-145) 05/31/20 21:28 Potassium 3.9 mmol/L (3.6-5.0) 05/31/20 21:28 Chloride 97.7 mmol/L (98-107) L 05/31/20 21:28 Carbon Dioxide 24 mmol/L (22-30) 05/31/20 21:28 Anion Gap 19 mmol/L 05/31/20 21:28 BUN 10 mg/dL (7-17) 05/31/20 21:28 Creatinine 1.1 mg/dL (0.6-1.2) 05/31/20 21:28 Estimated GFR 48 ml/min 05/31/20 21:28 BUN/Creatinine Ratio 9 % 05/31/20 21:28 Glucose 206 mg/dL (65-100) H 05/31/20 21:28 POC Glucose 116 (70-105) H 06/04/20 12:01 Calcium 10.2 mg/dL (8.4-10.2) 05/31/20 21:28 Total Bilirubin 0.20 mg/dL (0.1-1.2) 05/31/20 21:28 AST 19 units/L (5-40) 05/31/20 21:28 ALT 22 units/L (7-56) 05/31/20 21:28 Alkaline Phosphatase 122 units/L (35-129) 05/31/20 21:28 Total Protein 7.4 g/dL (6.3-8.2) 05/31/20 21:28 Albumin 4.3 g/dL (3.9-5) 05/31/20 21:28 Albumin/Globulin Ratio 1.4 % 05/31/20 21:28 Triglycerides 459 mg/dL (2-149) H 05/31/20 21:28 Cholesterol 202 mg/dL (50-199) H 05/31/20 21:28 LDL Cholesterol Direct TNR 05/31/20 21:28 HDL Cholesterol 33 mg/dL (40-59) L 05/31/20 21:28 Cholesterol/HDL Ratio 6.12 % 05/31/20 21:28 TSH 2.890 mlU/mL (0.270-4.200) 05/31/20 21:28 - Discharge Diagnoses (1) Bipolar 2 disorder Status: Acute Core Measure Documentation - Palliative Care Palliative Care/ Comfort Measures: Not Applicable - Core Measures Any of the following diagnoses?: none Exam - Constitutional Vitals: Temp Pulse Resp BP Pulse Ox 98.7 F 85 16 139/67 95 06/04/20 10:40 06/04/20 10:40 06/04/20 10:40 06/04/20 10:40 06/04/20 10:40 General appearance: Present: no acute distress - EENT Eyes: Present: PERRL, EOM intact ENT: hearing intact, clear oral mucosa - Neck Neck: Present: supple, normal ROM - Respiratory Respiratory effort: normal - Abdominal Female genitourinary: Present: deferred - Integumentary Integumentary: Present: clear, warm, dry Plan Care Plan Goals: Goals: Maintain good and stable mental health. Plan of Treatment: The patient should be compliant with medications, not to use drugs and not to drink alcohol. The patient understands that if suicidal ideas, homicidal ideas, or any endangering thoughts arise, the patient should immediately seek for emergent assistance including but not limited to crisis hot line and emergency room. Follow up with outpatient Psychiatrist and PCP within 7 - 14 days of discharge. Follow up with: PRIMARY CARE,MD [Primary Care Provider] - 7 Days Prescriptions: OLANzapine [ZyPREXA] 10 mg PO QHS #30 tablet Citalopram [celeXA] 10 mg PO QDAY #30
[2020-06-04] MEDS: CITALOPRAM 10 MG TAB PO SCH (15:16)
[2020-06-04] MEDS: CARBIDOPA/LEVODOPA 25-250 TAB PO SCH (15:16)
[2020-06-04] MEDS: BENZTROPINE 1 MG TAB PO SCH (15:16)
[2020-06-04] MEDS: amLODIPine 10 MG TAB PO SCH (15:19)
[2020-06-04] MEDS: carBAMazepine 200 MG TAB PO SCH (15:19)
[2020-06-04] MEDS: METOPROLOL TARTRATE 25 MG TAB PO SCH (15:19)
== END 2020-06-04 16:15 | DRG 885 ==
LOC: 3A 15:53 → UNDOADMIN 15:53 → 5A 20:20
PROVIDERS: ADMIT Psychiatry & Neurology Psychiatry; ATTEND Psychiatry & Neurology Psychiatry
DX: F31.81 Bipolar II disorder (principal); E11.22 Type 2 diabetes mellitus with diabetic chronic kidney disease; E03.9 Hypothyroidism, unspecified; E78.00 Pure hypercholesterolemia, unspecified; Z88.2 Allergy status to sulfonamides
CPT/HCPCS: 36415; 80053; 80061; 82962; 84443; 85025; G0378; A9270-GY; U0003-CS